=== PATIENT | female | born 1990 | race Caucasian/White ===

== ENCOUNTER 2016-11-08 16:51 | Emergency (ER) | payer OTHER ==
[~2016-11-08 16:51] MED LIST: OXYCODONE HYDRO10 M1; PROVENTIL0.09 MG/A1; QVAR0.04 MG/Ac; TES100 PO
[2016-11-08 18:25] LABS: CALCIUM 8.7 mg/dL (8.5-10.1); CARBON DIOXIDE 24.2 mmol/L (21-32); CHLORIDE SERUM 107 mmol/L (98-107); CREATININE SERUM 0.6 mg/dL (0.6-1.0); GFR1 > 60 mL/min; GLUCOSE SERUM 89 mg/dL (74-106); POTASSIUM SERUM 3.7 mmol/L (3.5-5.1); SODIUM SERUM 143 mmol/L (136-145)
[2016-11-08 18:29] LABS: ALBUMIN 3.9 g/dL (3.4-5.0); ALKALINE PHOSPHATASE 51 U/L (46-116); ALT/SGPT 38 U/L (14-59); AST/SGOT 33 U/L (15-37); BILIRUBIN TOTAL 0.4 mg/dL (0.20-1.00); TOTAL PROTEIN, SERUM 7.5 g/dL (6.4-8.2)
[2016-11-08 18:40] LABS: BASOPHIL % 0.7 % (0-2); PLATELET COUNT 276 x10^3mcL (130-400); RED CELL DISTRIBUTION WIDTH 12.9 % (11.5-14.5)
[2016-11-08 19:49] LABS: UA SPECIFIC GRAVITY 1.025 (1.005-1.035); microscopic required? YES; urine erythrocyte 2+ (NEGATIVE)
[2016-11-08 20:09] VITALS: BP 137/76
== END 2016-11-08 20:09 | disposition home or self-care (01) ==
LOC: ED 16:51
PROVIDERS: Emergency Medicine
DX: R51 Headache (principal); R03.0 Elevated blood-pressure reading, without diagnosis of hypertension; R10.30 Lower abdominal pain, unspecified; J45.909 Unspecified asthma, uncomplicated; I51.7 Cardiomegaly; C53.9 Malignant neoplasm of cervix uteri, unspecified; H49.9 Unspecified paralytic strabismus; G43.909 Migraine, unspecified, not intractable, without status migrainosus; Z88.8 Allergy status to other drugs, medicaments and biological substances; Z86.73 Personal history of transient ischemic attack (TIA), and cerebral infarction without residual deficits; Z79.899 Other long term (current) drug therapy
CPT/HCPCS: 83880; J2405; J3010; Q0092

== ENCOUNTER 2017-01-07 17:27 | Emergency (ER) | payer OTHER ==
[2017-01-07 20:11] LABS: microscopic required? YES; urine erythrocyte 3+ (NEGATIVE)
[2017-01-07 20:14] LABS: BASOPHIL % 0.3 % (0-2); PLATELET COUNT 299 x10^3mcL (130-400); RED CELL DISTRIBUTION WIDTH 13.2 % (11.5-14.5)
[2017-01-07 20:18] LABS: CALCIUM 8.5 mg/dL (8.5-10.1); CARBON DIOXIDE 23.7 mmol/L (21-32); CHLORIDE SERUM 111 mmol/L (98-107); CREATININE SERUM 0.7 mg/dL (0.6-1.0); GFR1 > 60 mL/min; GLUCOSE SERUM 131 mg/dL (74-106); POTASSIUM SERUM 3.8 mmol/L (3.5-5.1); SODIUM SERUM 146 mmol/L (136-145)
[2017-01-07 20:22] LABS: ALBUMIN 3.8 g/dL (3.4-5.0); ALKALINE PHOSPHATASE 52 U/L (46-116); ALT/SGPT 11 U/L (14-59); AMYLASE 63 U/L (25-115); AST/SGOT 17 U/L (15-37); BILIRUBIN TOTAL 0.36 mg/dL (0.20-1.00); LIPASE 110 IU/L (73-393); TOTAL PROTEIN, SERUM 7.5 g/dL (6.4-8.2)
[2017-01-07 22:50] VITALS: BP 130/83
== END 2017-01-07 22:50 | disposition home or self-care (01) ==
LOC: ED 17:27
PROVIDERS: Emergency Medicine
DX: N39.0 Urinary tract infection, site not specified (principal); C54.1 Malignant neoplasm of endometrium
CPT/HCPCS: 83880; J1885; J2405; J2765; J3010; J7030

== ENCOUNTER 2017-05-20 09:48 | Emergency (ER) | payer OTHER ==
[~2017-05-20] VITALS: Ht 149.9 cm; Wt 81.4 kg
[2017-05-20 12:44] VITALS: BP 137/99
== END 2017-05-20 12:44 | disposition home or self-care (01) ==
LOC: ED 09:48
DX: S13.9XXA Sprain of joints and ligaments of unspecified parts of neck, initial encounter (principal); R51 Headache; Z88.8 Allergy status to other drugs, medicaments and biological substances; V09.9XXA Pedestrian injured in unspecified transport accident, initial encounter; Y93.89 Activity, other specified; Y99.8 Other external cause status; Y92.89 Other specified places as the place of occurrence of the external cause

== ENCOUNTER 2017-10-04 11:07 | Emergency (ER) | payer OTHER ==
[~2017-10-04] VITALS: Ht 149.9 cm; Wt 80.7 kg
[2017-10-04 11:30] VITALS: Ht 149.9 cm; Wt 80.7 kg
[2017-10-04 13:18] VITALS: BP 131/78
== END 2017-10-04 13:18 | disposition home or self-care (01) ==
LOC: ED 11:07
DX: K59.00 Constipation, unspecified (principal); J45.909 Unspecified asthma, uncomplicated; Z90.710 Acquired absence of both cervix and uterus; Z91.041 Radiographic dye allergy status
CPT/HCPCS: J1885

== ENCOUNTER 2017-11-20 16:05 | Inpatient (IN) | payer OTHER ==
[~2017-11-20] VITALS: Ht 149.9 cm; Wt 78.5 kg
[2017-11-20 16:08] VITALS: Ht 149.9 cm; Wt 78.5 kg
[2017-11-20 16:49] LABS: microscopic required? NO
[2017-11-20 17:01] LABS: BASOPHIL % 0.4 % (0-2); PLATELET COUNT 230 x10^3mcL (130-400); RED CELL DISTRIBUTION WIDTH 13.2 % (11.5-14.5)
[2017-11-20 17:02] LABS: UA SPECIFIC GRAVITY <=1.005 (1.005-1.035); urine erythrocyte NEGATIVE (NEGATIVE)
[2017-11-20 17:10] LABS: CALCIUM 8.7 mg/dL (8.5-10.1); CARBON DIOXIDE 25.4 mmol/L (21-32); CHLORIDE SERUM 108 mmol/L (98-107); CREATININE SERUM 0.6 mg/dL (0.6-1.0); GFR1 > 60 mL/min; GLUCOSE SERUM 126 mg/dL (74-106); POTASSIUM SERUM 3.7 mmol/L (3.5-5.1); SODIUM SERUM 140 mmol/L (136-145)
[2017-11-20 17:17] LABS: ALBUMIN 3.7 g/dL (3.4-5.0); ALKALINE PHOSPHATASE 54 U/L (46-116); ALT/SGPT 32 U/L (14-59); AST/SGOT 29 U/L (15-37); BILIRUBIN TOTAL 0.48 mg/dL (0.20-1.00); TOTAL PROTEIN, SERUM 7.3 g/dL (6.4-8.2)
[2017-11-20 19:54] VITALS: BP 147/82
[2017-11-21 05:52] VITALS: BP 147/89
[2017-11-21 10:36] VITALS: BP 118/70
[2017-11-21 17:54] VITALS: BP 106/55
[2017-11-21 21:49] VITALS: BP 142/99
[2017-11-22 05:09] VITALS: BP 125/76
[2017-11-22 09:43] VITALS: BP 123/77
[2017-11-22 11:43] VITALS: BP 148/85
== END 2017-11-22 12:44 | disposition short-term general hospital (02) | DRG 48 ==
LOC: ED 16:05 → DU 18:05
PROVIDERS: Emergency Medicine
DX: H49.22 Sixth [abducent] nerve palsy, left eye (principal); E66.9 Obesity, unspecified; J45.909 Unspecified asthma, uncomplicated; Z88.3 Allergy status to other anti-infective agents; Z85.42 Personal history of malignant neoplasm of other parts of uterus; Z90.710 Acquired absence of both cervix and uterus; R07.9 Chest pain, unspecified
CPT/HCPCS: 83880; 85378; A9577; J1650; J2270; J8597

== ENCOUNTER 2020-08-29 13:48 | Inpatient (IN) | payer OTHER ==
[~2020-08-29] VITALS: Ht 149.9 cm; Wt 74.4 kg
[2020-08-29 13:55] VITALS: Ht 149.9 cm; Wt 74.4 kg
[2020-08-29 15:31] LABS: BASOPHIL % 0.7 % (0.2-1.3); PLATELET COUNT 269 x10^3mcL (179-408); RED CELL DISTRIBUTION WIDTH 12.9 % (12.3-17.7)
[2020-08-29 16:03] LABS: CALCIUM 8.9 mg/dL (8.5-10.1); CHLORIDE SERUM 107 mmol/L (98-107); CREATININE SERUM 0.6 mg/dL (0.6-1.0); GFR1 > 60 mL/min; GLUCOSE SERUM 105 mg/dL (74-106); POTASSIUM SERUM 3.9 mmol/L (3.5-5.1); SODIUM SERUM 140 mmol/L (136-145)
[2020-08-29 16:16] LABS: ALBUMIN 3.8 g/dL (3.4-5.0); ALKALINE PHOSPHATASE 55 U/L (46-116); ALT/SGPT 27 U/L (14-59); AST/SGOT 26 U/L (15-37); BILIRUBIN TOTAL 0.2 mg/dL (0.20-1.00); T4(THYROXINE) 6.9 ug/dL (4.7-13.3); TOTAL PROTEIN, SERUM 7.6 g/dL (6.4-8.2)
[2020-08-29] MEDS ORDERED: GRALISE600 MG PO (17:44)
[2020-08-29] MEDS ORDERED: TOPAMAX15 MG PO (17:46)
[2020-08-29 21:12] VITALS: BP 141/92
[2020-08-30 05:37] LABS: BASOPHIL % 0.5 % (0.2-1.3); PLATELET COUNT 285 x10^3mcL (179-408); RED CELL DISTRIBUTION WIDTH 12.9 % (12.3-17.7)
[2020-08-30 06:13] VITALS: BP 133/82
[2020-08-30 06:28] LABS: ALBUMIN 3.9 g/dL (3.4-5.0); ALKALINE PHOSPHATASE 53 U/L (46-116); ALT/SGPT 24 U/L (14-59); AST/SGOT 18 U/L (15-37); CALCIUM 9.6 mg/dL (8.5-10.1); CARBON DIOXIDE 24.4 mmol/L (21-32); CHLORIDE SERUM 106 mmol/L (98-107); CREATININE SERUM 0.7 mg/dL (0.6-1.0); GFR1 > 60 mL/min; GLUCOSE SERUM 94 mg/dL (74-106); MAGNESIUM 2.3 mg/dL (1.8-2.4); POTASSIUM SERUM 3.6 mmol/L (3.5-5.1); SODIUM SERUM 142 mmol/L (136-145); TOTAL PROTEIN, SERUM 7.9 g/dL (6.4-8.2)
[2020-08-30 08:43] VITALS: BP 133/83
[2020-08-30 12:06] VITALS: BP 142/93
[2020-08-30 12:08] VITALS: BP 142/93
[2020-08-30 13:20] VITALS: BP 128/72
== END 2020-08-30 13:45 | disposition home or self-care (01) | DRG 48 ==
LOC: ED 13:48 → DU 16:42
PROVIDERS: Emergency Medicine; ADMIT Hospitalist; ATTEND Hospitalist
DX: H49.12 Fourth [trochlear] nerve palsy, left eye (principal); E66.9 Obesity, unspecified; G40.909 Epilepsy, unspecified, not intractable, without status epilepticus; Z20.822 Contact with and (suspected) exposure to COVID-19; G43.909 Migraine, unspecified, not intractable, without status migrainosus; J45.909 Unspecified asthma, uncomplicated; Z91.041 Radiographic dye allergy status; Z90.710 Acquired absence of both cervix and uterus; Z68.36 Body mass index [BMI] 36.0-36.9, adult; Z79.899 Other long term (current) drug therapy
CPT/HCPCS: 97116-GP; A9577; G0378; J1650; J2270; J2405; J7030; Q9967